=== PATIENT | female | born 1950 | race Caucasian/White ===

== ENCOUNTER 2021-03-14 05:43 | Outpatient (CLI) | payer OTHER ==
[~2021-03-14] VITALS: Ht 165.1 cm; Wt 84.0 kg
[2021-03-14] MEDS ORDERED: LISI20TA26 PO (13:05)
[2021-03-14] MEDS ORDERED: HYDR12.56 PO (13:05)
[2021-03-14] MEDS ORDERED: ASPI-999 PO (13:05)
[2021-03-14] MEDS ORDERED: ATOR40TA70 PO (13:05)
[2021-03-14] MEDS ORDERED: METF-845 PO (13:05)
[2021-03-14] MEDS ORDERED: MV-M1TAB38 PO (13:05)
[2021-03-14] MEDS ORDERED: OXYC5TAB PO (13:05)
[2021-03-14] MEDS ORDERED: ATEN100T PO (13:05)
[2021-03-14] MEDS ORDERED: OMEP20CA18 PO (13:05)
[2021-03-14] MEDS ORDERED: OMEG10005 PO (13:05)
== END 2021-03-14 16:18 | disposition home or self-care (01) ==
LOC: PREOP 05:43
PROVIDERS: ATTEND Surgery
DX: Z01.818 Encounter for other preprocedural examination (principal)

== ENCOUNTER 2021-03-24 12:53 | Day surgery (SDC) | payer MEDICARE, OTHER ==
[~2021-03-24] VITALS: Ht 165.1 cm; Wt 84.0 kg
[2021-03-24] VITALS (7 sets, daily range): BP systolic 127–143; BP diastolic 49–92
[~2021-03-24 12:53] MED LIST: ASPI-999 PO; ATEN100T PO; ATOR40TA70 PO; HYDR12.56 PO; LISI20TA26 PO; METF-845 PO; MV-M1TAB38 PO; OMEG10005 PO; OMEP20CA18 PO; OXYC5TAB PO
[2021-03-24] MEDS ORDERED: LACTATED RINGERS 1,000 ML IV STA (13:05)
[2021-03-24] MEDS ORDERED: PROPOFOL INJECTION 50 ML IV ONE (14:22)
[2021-03-24] MEDS ORDERED: proPOfol 200 MG/20 ML (DIPRIVAN) VIAL IV ONE (16:04)
--- NOTE | 2021-03-24 16:21 | Progress Note-Post Operative ---
Post-Operative Progess Note Surgeon (s)/Meat Butcher (s) Surgeon SHANDA RILEY DO Meat Butcher: na Pre-Operative Diagnosis screening colonoscopy Post-Operative Diagnosis diverticulosis, mucosal change sigmoid Procedure & Operative Findings Date of Procedure 03/24/21 Procedure Performed/Findings colonoscopy c cold biopsy sigmoid Anesthesia Type per [facility] Estimated Blood Loss Estimated blood loss (mL): none Specimens/Packing Specimens Removed sigmoid mucosa SHANDA RILEY DO Mar 24, 2021 16:21
--- NOTE | 2021-03-24 16:22 | Discharge Inst-Simple/Standard ---
Discharge Inst-Standard Patient Instructions/Follow Up Plan of Care/Instructions/FU: 2 weeks Shai Activity as Tolerated: Yes Discharge Diet: Regular Diet (high fiber) SHANDA RILEY DO Mar 24, 2021 16:22
--- NOTE | 2021-03-24 16:23 | Anesthesia-General Post-Op ---
MAC Patient Condition Mental Status/LOC: Same as Preop Cardiovascular: Satisfactory Nausea/Vomiting: Absent Respiratory: Satisfactory Pain: Controlled Complications: Absent Post Op Complications Complications None Follow Up Care/Instructions Patient Instructions None needed. Anesthesiology Discharge Order Discharge Order Patient is doing well, no complaints, stable vital signs, no apparent adverse anesthesia problems. RU THAKKAR DO Mar 24, 2021 16:23
--- NOTE | 2021-03-24 23:13 | OPERATIVE REPORT ---
DATE OF SERVICE: 03/24/2021 PREOPERATIVE DIAGNOSIS: Screening colonoscopy. POSTOPERATIVE DIAGNOSIS: Diverticulosis, mucosal change, sigmoid. PROCEDURE: Colonoscopy with cold biopsy of sigmoid mucosa. SURGEON: Shanda Gibbons DO ANESTHESIA: Per MDA. ESTIMATED BLOOD LOSS: None. COMPLICATIONS: None. INDICATIONS: The patient is a 70-year-old female needing screening colonoscopy. She understands risks and benefits of procedure and wished to proceed. Consent was signed in the chart. DESCRIPTION OF PROCEDURE: The patient was taken to the endoscopy suite, placed in left lateral recumbent position. Timeout was performed. Digital rectal exam was performed. No palpable polyps, masses or ulcerations. Scope was inserted in the rectum and advanced all the way to cecum with minimal difficulty. Prep was adequate with irrigation and suction. Scope was slowly retracted back. No polyps, masses or ulcerations within the cecum, ascending, transverse and descending colon. In the sigmoid colon, a moderate amount of diverticulosis is present. Some slight erythematous mucosal changes. Cold biopsy was obtained. Scope was then continuously retracted back into the rectum, which also had some erythematous changes. Biopsy of the rectum was obtained as well. Scope was retroflexed noting no other pathology. Scope was returned to its normal position, slowly withdrawn until completely removed. The patient tolerated procedure well without any complications, taken to recovery room in stable condition. RECOMMENDATIONS: The patient will need repeat colonoscopy on an as needed basis as her next colonoscopy would be 10 years. If she has any issues before that, she should be seen at that time. The patient to follow up on biopsies obtained in the office in about two weeks. CC: Dr. Lynn - requested, unable to deliver Job ID: [id number] DocumentID: [id number] Dictated Date: 03/24/2021 16:53:56 Advertising Operations Coordinator Date: 03/24/2021 22:33:09 Dictated By: SHANDA GIBBONS DO
== END 2021-03-24 17:00 | disposition home or self-care (01) ==
LOC: ENDO 12:53
PROVIDERS: ATTEND Surgery
DX: Z12.11 Encounter for screening for malignant neoplasm of colon (principal); K52.9 Noninfective gastroenteritis and colitis, unspecified; K57.30 Diverticulosis of large intestine without perforation or abscess without bleeding; I10 Essential (primary) hypertension; E78.5 Hyperlipidemia, unspecified; K21.9 Gastro-esophageal reflux disease without esophagitis; Z79.899 Other long term (current) drug therapy
CPT/HCPCS: 88305

== ENCOUNTER 2022-02-03 19:17 | Observation (INO) | payer MEDICARE ==
[~2022-02-03] VITALS: Ht 165.1 cm; Wt 89.1 kg
[2022-02-03 19:37] LABS: BASOPHILS % (AUTO) 1 % (0-10); EOSINOPHILS # (AUTO) 0.2 10^3/uL (0.0-0.3); EOSINOPHILS % (AUTO) 2 % (0-10); HEMATOCRIT 34 % (35-52); HEMOGLOBIN 12.1 g/dL (11.5-16.0); LYMPHOCYTES # (AUTO) 2.8 10^3/uL (1.0-4.0); LYMPHOCYTES % (AUTO) 32 % (12-44); MEAN CORPUSCULAR HEMOGLOBIN 35 pg (25-34); MEAN CORPUSCULAR HGB CONC 36 g/dL (32-36); MEAN CORPUSCULAR VOLUME 96 fL (80-99); MEAN PLATELET VOLUME 10.1 fL (9.0-12.2); MONOCYTES # (AUTO) 0.9 10^3/uL (0.0-1.0); MONOCYTES % (AUTO) 10 % (0-12); NEUTROPHILS # (AUTO) 4.7 10^3/uL (1.8-7.8); NEUTROPHILS % (AUTO) 54 % (42-75); PLATELET COUNT 274 10^3/uL (130-400); WHITE BLOOD COUNT 8.6 10^3/uL (4.3-11.0)
[2022-02-03 19:46] LABS: PROTHROMBIN TIME PATIENT 13.6 SEC (12.2-14.7)
--- NOTE | 2022-02-03 19:47 | Diagnostic Imaging Report ---
INDICATION: Shortness of breath. FINDINGS: There is no alveolar consolidation or evidence of an effusion. There is no pneumothorax. Heart size appears appropriate. Pulmonary vascularity appears normal. The patient is status post previous bilateral shoulder arthroplasty. IMPRESSION: No radiographic evidence of an acute cardiopulmonary process. Dictated by: Dictated on workstation # [id number]
[2022-02-03 19:55] LABS: POTASSIUM 3.3 MMOL/L (3.6-5.0)
[2022-02-03 19:56] LABS: ALBUMIN 4.1 GM/DL (3.2-4.5); BILIRUBIN,TOTAL 0.5 MG/DL (0.1-1.0); CALCIUM 9.3 MG/DL (8.5-10.1); CREATININE SERUM 1.05 MG/DL (0.60-1.30); MAGNESIUM 1.8 MG/DL (1.6-2.4)
--- NOTE | 2022-02-03 20:00 | ED Respiratory ---
General Chief Complaint: Respiratory Problems Stated Complaint: SOB,DIZZINESS Nursing Triage Note: Pt complaining of shortness of breath and dizziness. Pt states she has had several episodes where she has felt this way over the past few weeks, each lasting about 10 min. Pt states today she started feeling this way around 1600. Source: patient Exam Limitations: no limitations History of Present Illness Date Seen by Provider: Feb 03, 2022 Time Seen by Provider: 19:20 Initial Comments 71-year-old female patient with history of hypertension, hyperlipidemia, arthrit is presented POV with complaining of shortness of breath and dizziness for the last 3 hours patient complaining of sudden onset of shortness of breath and generalized weakness and dizziness with change of the position and also rest without palpitation, chest pain, nausea and vomiting, focal neurodeficit, headache, blurred vision, fever and chills, cough and congestion. Patient sta hector she has had episodes of dizziness and shortness of breath for the last 1 month that usually last about 10 minutes and resolve spontaneously but today it lasted for longer time. Patient did not seek medical attention for her problem. Allergies and Home Medications Allergies Coded Allergies: Penicillins (Unverified Allergy, Unknown, 03/14/21) Sulfa (Sulfonamide Antibiotics) (Unverified Allergy, Unknown, 03/14/21) clindamycin (Unverified Allergy, Unknown, 03/14/21) hydrocodone (Unverified Allergy, Unknown, 03/14/21) morphine (Unverified Allergy, Unknown, 03/14/21) tramadol (Unverified Allergy, Unknown, 03/14/21) Patient Home Medication List Home Medication List Reviewed: Yes Aspirin (Aspirin) 81 Mg Tab.chew, 81 MG PO DAILY, (Reported) Entered as Reported by: ALFREDO CALDWELL on 03/14/21 1305 Atenolol (Atenolol) 100 Mg Tablet, 100 MG PO DAILY, (Reported) Entered as Reported by: ALFREDO CALDWELL on 03/14/21 1305 Atorvastatin Calcium (Atorvastatin Calcium) 40 Mg Tablet, 40 MG PO DAILY, (Reported) Entered as Reported by: ALFREOD CALDWELL on 03/14/21 1305 Hydrochlorothiazide (Hydrochlorothiazide) 12.5 Mg Tablet, 12.5 MG PO DAILY, (Reported) Entered as Reported by: ALFREDO CALDWELL on 03/14/21 1305 Lisinopril (Lisinopril) 20 Mg Tablet, 20 MG PO DAILY, (Reported) Entered as Reported by: ALFREDO CALDWELL on 03/14/21 130 Metformin HCl (Metformin HCl ER) 500 Mg [id number], 500 MG PO DAILY, (Reported) Entered as Reported by: ALFREDO CALDWELL on 03/14/21 1305 Mv-Mn/FA/Vit K/Lycop/Lut/Zeaxa (Ocuvite Eye + Multi Tablet) 1 Each Tablet, 1 EACH PO DAILY, (Reported) Entered as Reported by: ALFREDO CALDWELL on 03/14/21 130 Houston-3 Fatty Acids (Houston-3) 1,000 Mg Capsule, 1,000 MG PO DAILY, (Reported) Entered as Reported by: ALFREDO CALDWELL on 03/14/21 130 Omeprazole (Omeprazole) 20 Mg Capsule.dr, 20 MG PO DAILY, (Reported) Entered as Reported by: ALFREDO CALDWELL on 03/14/21 130 Oxycodone HCl (Oxycodone HCl) 5 Mg Tablet, 5 MG PO PRN, (Reported) Entered as Reported by: ALFREDO CALDWELL on 03/14/21 130 Review of Systems Review of Systems Constitutional: see HPI EENTM: see HPI Respiratory: see HPI Cardiovascular: see HPI Gastrointestinal: see HPI Genitourinary: see HPI Musculoskeletal: see HPI Skin: see HPI Psychiatric/Neurological: See HPI Hematologic/Lymphatic: See HPI Immunological/Allergic: see HPI All Other Systems Reviewed Negative Unless Noted: Yes Past Zjzwbiw-Cadbcl-Dpbvfa Hx Patient Social History Tobacco Use?: No Use of E-Cig and/or Vaping dev: No Substance use?: No Alcohol Use?: Yes Pt feels they are or have been: No Immunizations Up To Date First/Initial COVID19 Vaccinat: JUNE 2020 Second COVID19 Vaccination David: JULY 2020 Seasonal Allergies Seasonal Allergies: No Past Medical History Surgeries: Yes Section, Orthopedic Respiratory: No Cardiac: No Neurological: No Genitourinary: No Gastrointestinal: No Musculoskeletal: No Endocrine: No HEENT: No Cancer: No Psychosocial: No Integumentary: No Blood Disorders: No Physical Exam Vital Signs - First Documented 02/03/22 02/03/22 19:19 19:25 Temp 36.4 Pulse 132 Resp 20 B/P (MAP) 177/91 (119) Pulse Ox 100 O2 Delivery Room Air O2 Flow Rate 2.00 FiO2 100 Capillary Refill : Less Than 3 Seconds Height: '" Weight: lbs. oz. kg; 30.81 BMI Method: General Appearance: WD/WN, moderate distress Eyes: Bilateral Eye Normal Inspection, Bilateral Eye PERRL HEENT: PERRL/EOMI, normal ENT inspection Neck: non-tender, full range of motion Respiratory: chest non-tender, lungs clear, normal breath sounds, no respiratory distress, no accessory muscle use Cardiovascular: no gallop, no murmur, tachycardia, irregularly irregular Gastrointestinal: normal bowel sounds, non tender, soft, no organomegaly Extremities: normal range of motion, non-tender, normal inspection Neurologic/Psychiatric: alert, normal mood/affect, oriented x 3 Skin: normal color, warm/dry Lymphatic: no adenopathy Progress/Results/Core Measures Suspected Sepsis SIRS Temperature: Pulse: 105 Respiratory Rate: 20 Laboratory Tests 02/03/22 19:24: White Blood Count 8.6 Blood Pressure 168 /97 Mean: 120 Laboratory Tests 02/03/22 19:24: Creatinine 1.05, INR Comment 1.0, Platelet Count 274, Total Bilirubin 0.5 Results/Orders Lab Results Laboratory Tests Test 02/03/22 19:24 Range/Units White Blood Count 8.6 4.3-11.0 10^3/uL Red Blood Count 3.51 L 3.80-5.11 10^6/uL Hemoglobin 12.1 11.5-16.0 g/dL Hematocrit 34 L 35-52 % Mean Corpuscular Volume 96 80-99 fL Mean Corpuscular Hemoglobin 35 H 25-34 pg Mean Corpuscular Hemoglobin Concent 36 32-36 g/dL Red Cell Distribution Width 12.7 10.0-14.5 % Platelet Count 274 130-400 10^3/uL Mean Platelet Volume 10.1 9.0-12.2 fL Immature Granulocyte % (Auto) 1 % Neutrophils (%) (Auto) 54 42-75 % Lymphocytes (%) (Auto) 32 12-44 % Monocytes (%) (Auto) 10 0-12 % Eosinophils (%) (Auto) 2 0-10 % Basophils (%) (Auto) 1 0-10 % Neutrophils # (Auto) 4.7 1.8-7.8 10^3/uL Lymphocytes # (Auto) 2.8 1.0-4.0 10^3/uL Monocytes # (Auto) 0.9 0.0-1.0 10^3/uL Eosinophils # (Auto) 0.2 0.0-0.3 10^3/uL Basophils # (Auto) 0.0 0.0-0.1 10^3/uL Immature Granulocyte # (Auto) 0.1 0.0-0.1 10^3/uL Prothrombin Time 13.6 12.2-14.7 SEC INR Comment 1.0 0.8-1.4 Activated Partial Thromboplast Time 27 24-35 SEC Sodium Level 125 *L 135-145 MMOL/L Potassium Level 3.3 L 3.6-5.0 MMOL/L Chloride Level 84 L 98-107 MMOL/L Carbon Dioxide Level 23 21-32 MMOL/L Anion Gap 18 H 5-14 MMOL/L Blood Urea Nitrogen 17 7-18 MG/DL Creatinine 1.05 0.60-1.30 MG/DL Estimat Glomerular Filtration Rate 57 BUN/Creatinine Ratio 16 Glucose Level 135 H 70-105 MG/DL Calcium Level 9.3 8.5-10.1 MG/DL Corrected Calcium 9.2 8.5-10.1 MG/DL Magnesium Level 1.8 1.6-2.4 MG/DL Total Bilirubin 0.5 0.1-1.0 MG/DL Aspartate Amino Transf (AST/SGOT) 24 5-34 U/L Alanine Aminotransferase (ALT/SGPT) 18 0-55 U/L Alkaline Phosphatase 106 40-136 U/L Troponin I < 0.30 <0.30 NG/ML Pro-B-Type Natriuretic Peptide 1446.0 H <125.0 PG/ML Total Protein 7.0 6.4-8.2 GM/DL Albumin 4.1 3.2-4.5 GM/DL My Orders Orders - MER MURRIETA MD Diltiazem Injection (Cardizem Injection) (02/03/22 19:30) Ekg Tracing (02/03/22 19:27) Ed Iv/Invasive Line Start (02/03/22 19:27) Cbc With Automated Diff (02/03/22 19:32) Magnesium (02/03/22 19:32) Chest 1 View Ap/Pa Only (02/03/22 19:32) Ekg Tracing (02/03/22:32) Comprehensive Metabolic Panel (02/03/22:32) Protime With Inr (02/03/22 19:32) Partial Thromboplastin Time (02/03/22 19:32) O2 (02/03/22:32) Monitor-Rhythm Ecg Trace Only (02/03/22 19:32) Ed Iv/Invasive Line Start (02/03/22 19:32) Troponin I Fs (02/03/22 19:32) Probnp Fs (02/03/22 19:32) Ns Iv 500 Ml (Sodium Chloride 0.9%) (02/03/22 20:15) Potassium Chloride (Tablet) (K Dur Table (02/03/22 21:00) Medications Given in ED Current Medications Medications Dose Ordered Sig/Wesley Route Start Time Stop Time Status Last Admin Dose Admin Diltiazem HCl 20 mg ONCE ONCE IVP 02/03/22 19:30 02/03/22 19:31 DC 02/03/22 19:32 20 MG Potassium Chloride 40 meq ONCE ONCE PO 02/03/22 21:00 02/03/22 21:01 DC 02/03/22 20:58 40 MEQ Sodium Chloride 500 ml @ 0 mls/hr Q0M ONCE IV 02/03/22 20:15 02/03/22 20:16 DC 02/03/22 20:11 999 MLS/HR Vital Signs/I&O 02/03/22 02/03/22 02/03/22 02/03/22 19:19 19:25 19:32 21:38 Temp 36.4 Pulse 132 105 58 Resp 20 18 B/P (MAP) 177/91 (119) 168/97 160/68 Pulse Ox 100 100 100 O2 Delivery Room Air Nasal Cannula Room Air O2 Flow Rate 2.00 FiO2 100 Capillary Refill : Less Than 3 Seconds Blood Pressure Mean: 120 Progress Note : Progress Note Evaluation of patient in ER showed 8-year-old female patient with history of hypertension and hyperlipidemia with complaining of episode of dizziness and shortness of breath for several weeks that getting worse today. Patient had atrial fibrillation with RVR at rate of 111 and treated with bolus of Cardizem with gradual decrease of heart rate to 80s and then 60s and 40s with improvement of her shortness of breath and dizziness. Patient had potassium of 3.3 and sodium of 125 and chloride of 80 and treated with bolus of normal saline 500 mL and oral potassium of 40 mEq. Troponin was normal but BNP was 1440. Chest x- ray did not show cardiomegaly or increase of vascular congestion. Dr. Thomas on-call laboratory supervisor was consulted at 2049 and recommended to admit patient for observation and give Eliquis 5 mg twice daily. He did not recommend to give any Lasix at this time. Dr. Desir on-call hospitalist was consulted at 2100 and agreed with admitting the patient. Patient and her updated several times with the test results and plan of care and need for transfer and all questions was addressed. Patient had heart rate of 57 at time of transfer. ECG Initial ECG Impression Date: Feb 03, 2022 Initial ECG Impression Time: 19:21 Initial ECG Rate: 111 Initial ECG Rhythm: A Fib/Flutter Initial ECG Intervals EKG interpreted by me. EKG at 1920 showed atrial fibrillation with RVR with PVCs, moderate voltage criteria for LVH, nonspecific T wave abnormality, no acute ST and T wave elevation. EKG : EKG Time: 20:07 Rate: 44 Rhythm: S.Prasanth Comment EKG interpreted by me. EKG at 2006 showed sinus bradycardia at rate of 44, normal CT interval of 182 and QT of 440, multiple artifact, no acute ST and T wave elevation. Diagnostic Imaging Diagonstic Imaging: Xray Plain Films/CT/US/NM/MRI: chest Comments 1 view chest x-ray interpreted by radiologist and reviewed by me and showed: NAME: ASHLEY AMARO V [facility] REC#: [id number] PT STATUS: REG ER : 1950 PHYSICIAN: MER MURRIETA MD ADMIT DATE: 02/03/22/ER FS Draft Date of Exam:02/03/22 CHEST 1 VIEW AP/PA ONLY INDICATION: Shortness of breath. FINDINGS: There is no alveolar consolidation or evidence of an effusion. There is no pneumothorax. Heart size appears appropriate. Pulmonary vascularity appears normal. The patient is status post previous bilateral shoulder arthroplasty. IMPRESSION: No radiographic evidence of an acute cardiopulmonary process. Dictated on workstation # [id number] Dict: 02/03/221939 Trans: 02/03/221945 [facility] [id number] Interpreted by: TARIK ALDRIDGE MD Electronically signed by: Departure Communication (Admissions) Time/Spoke to Admitting Phy: 21:01 Dr. Solis on-call hospitalist was consulted and accepted admission. Time/Spoke to Consulting Phy: 20:50 Dr. Schmitz laboratory supervisor was consulted at 2049 and recommended to admit patient to hospital to stepdown cardiac for observation, start Eliquis 5 mg p.o. twice daily, correct electrolyte imbalance, no Lasix was recommended. Impression Primary Impression: Atrial fibrillation with RVR Additional Impressions: Hyponatremia CHF (congestive heart failure) Qualified Codes: I50.9 - Heart failure, unspecified Hypokalemia Hypochloremia Disposition: 30 STILL A PATIENT Condition: Improved Admissions Decision to Admit Reason: Admit from ER (General) Decision to Admit/Date: Feb 03, 2022 Time/Decision to Admit Time: 21:05 Transfer Method of Transfer: EMS Departure-Patient Inst. Referrals: DARRYN COSTELLO MD (PCP/Family) Primary Care Physician MER MURRIETA MD Feb 03, 2022 20:00
[2022-02-03] MEDS ORDERED: NS IV 500 ML 500 ML IV ONE (20:15)
[2022-02-03] MEDS ORDERED: KCL 20 MEQ TAB (K-DUR) PO ONE (21:00)
[2022-02-03 22:53] VITALS: BP 179/80
[2022-02-03 23:00] VITALS: BP 170/74
[2022-02-03] MEDS ORDERED: BISACODYL 10 MG SUPP (DULCOLAX) PR PRN (23:00)
[2022-02-03] MEDS ORDERED: HYDROmorphone 2 MG/ML VIAL (DILAUDID) IV PRN (23:00)
[2022-02-03] MEDS ORDERED: diphenhydrAMINE 50 MG/ML INJ (BENADRYL) IVP PRN (23:00)
[2022-02-03] MEDS ORDERED: ONDANSETRON 4 MG/2 ML (SDV) Z0FRAN IV PRN (23:00)
[2022-02-03] MEDS ORDERED: ANTACID SUSP 30 ML UDC (MYLANTA) PO PRN (23:00)
[2022-02-03] MEDS ORDERED: diphenhydrAMINE 25 MG TAB (BENADRYL) PO PRN (23:00)
[2022-02-03] MEDS ORDERED: ONDANSETRON 4 MG (ZOFRAN) ORAL DISSOLVE TAB PO PRN (23:00)
[2022-02-03] MEDS ORDERED: MELATONIN 3 MG TABLET PO PRN (23:00)
[2022-02-03] MEDS ORDERED: ACETAMINOPHEN 325 MG TABLET PO PRN (23:00)
[2022-02-03] MEDS ORDERED: ALPRAZolam 0.5 MG (XANAX) TAB PO PRN (23:00)
[2022-02-03] MEDS ORDERED: polyethylene glycoL POWDER 17 GM (MIRALAX) PACK PO PRN (23:00)
[2022-02-03] MEDS ORDERED: cloNIDine 0.1 MG (CATAPRES) TAB PO PRN (23:00)
[2022-02-03 23:15] VITALS: BP 166/75
[2022-02-03] MEDS: NS IV 1000 ML 1,000 ML IV SCH (23:28)
[2022-02-03] MEDS: APIXABAN 5 MG (ELIQUIS) TABLET PO SCH (23:28)
[2022-02-03 23:30] VITALS: BP 166/75
[2022-02-04] VITALS (9 sets, daily range): BP systolic 136–185; BP diastolic 63–87
[2022-02-04 04:18] LABS: BILIRUBIN,URINE NEGATIVE (NEGATIVE); CLARITY,URINE CLEAR; COLOR,URINE YELLOW; GLUCOSE, URINE (UA) NEGATIVE (NEGATIVE); KETONES,URINE NEGATIVE (NEGATIVE); LEUKOCYTE ESTERASE ,URINE 1+ (NEGATIVE); NITRITE,URINE POSITIVE (NEGATIVE); PH,URINE 7.5 (5-9); PROTEIN,URINE NEGATIVE (NEGATIVE)
[2022-02-04 04:33] LABS: BACTERIA,URINE LARGE /HPF; RBC,URINE 0-2 /HPF; SQUAMOUS EPITHELIAL CELL,UR 25-50 /HPF
[2022-02-04 04:49] LABS: BASOPHILS % (AUTO) 0 % (0-10); EOSINOPHILS # (AUTO) 0.1 10^3/uL (0.0-0.3); EOSINOPHILS % (AUTO) 1 % (0-10); HEMATOCRIT 30 % (35-52); HEMOGLOBIN 10.6 g/dL (11.5-16.0); LYMPHOCYTES # (AUTO) 1.9 10^3/uL (1.0-4.0); LYMPHOCYTES % (AUTO) 27 % (12-44); MEAN CORPUSCULAR HEMOGLOBIN 34 pg (25-34); MEAN CORPUSCULAR HGB CONC 35 g/dL (32-36); MEAN CORPUSCULAR VOLUME 98 fL (80-99); MEAN PLATELET VOLUME 9.9 fL (9.0-12.2); MONOCYTES # (AUTO) 0.8 10^3/uL (0.0-1.0); MONOCYTES % (AUTO) 11 % (0-12); NEUTROPHILS # (AUTO) 4.4 10^3/uL (1.8-7.8); NEUTROPHILS % (AUTO) 61 % (42-75); PLATELET COUNT 233 10^3/uL (130-400); WHITE BLOOD COUNT 7.2 10^3/uL (4.3-11.0)
[2022-02-04 05:06] LABS: ALBUMIN 3.4 GM/DL (3.2-4.5); POTASSIUM 4.2 MMOL/L (3.6-5.0)
[2022-02-04 05:08] LABS: CALCIUM 8.6 MG/DL (8.5-10.1)
[2022-02-04 05:09] LABS: TOTAL PROTEIN 6.1 GM/DL (6.4-8.2)
[2022-02-04 05:11] LABS: BILIRUBIN,TOTAL 0.7 MG/DL (0.1-1.0)
[2022-02-04 05:12] LABS: CREATININE SERUM 0.86 MG/DL (0.60-1.30); PHOSPHORUS 3.5 MG/DL (2.3-4.7)
[2022-02-04 05:15] LABS: MAGNESIUM 1.8 MG/DL (1.6-2.4)
--- NOTE | 2022-02-04 05:37 | History & Physical-Hospitalist ---
History of Present Illness Date Seen 02/04/22 Time Seen by a Provider: 11:00 Attending Physician Camila Lynn MD PCP Admitting Physician: Brit Solis DO Attending Physician: Brit Solis DO Referring Physician Date of Admission Feb 03, 2022 at 22:44 Home Medications & Allergies Home Medications Reviewed patient Home Medication Reconciliation performed by pharmacy medication reconciliations urgent care technician and/or nursing. Patients Allergies have been reviewed. Allergies Allergies Coded Allergies Penicillins (Unverified Allergy, Unknown, 03/14/21) Sulfa (Sulfonamide Antibiotics) (Unverified Allergy, Unknown, 03/14/21) clindamycin (Unverified Allergy, Unknown, 03/14/21) hydrocodone (Unverified Allergy, Unknown, 03/14/21) morphine (Unverified Allergy, Unknown, 03/14/21) tramadol (Unverified Allergy, Unknown, 03/14/21) Past Cnmjhda-Astkvm-Klblcp Hx Patient Social History Tobacco Use?: No Smoking Status: Never a Smoker Smokeless Tobacco Frequency: Never a User Use of E-Cig and/or Vaping dev: No Use of E-Cig and/or Vaping Akira: Never a User Substance use?: No Alcohol Use?: Yes Alcohol type: Hard Liquor Alcohol Frequency: Daily Pt feels they are or have been: No Immunizations Up To Date Date of Influenza Vaccine: Mar 14, 2021 First/Initial COVID19 Vaccinat: JUNE 2020 Second COVID19 Vaccination David: JULY 2020 Tetanus Booster (TDap): Unknown Hepatitis A: No Hepatitis B: No Seasonal Allergies Seasonal Allergies: No Current Status status: No status: No Advance Directives: No Communicates: Verbally Primary Language: Emirati Preferred Spoken Language: Emirati Is interpretation needed?: No Implanted or Applied Medical D: Orthopedic hardware Past Medical History Surgeries: Section, Orthopedic Blood Disorders: No Physical Exam Physical Exam Vital Signs Vital Signs - First Documented 02/03/22 02/03/22 19:19 19:25 Temp 36.4 Pulse 132 Resp 20 B/P (MAP) 177/91 (119) Pulse Ox 100 O2 Delivery Room Air O2 Flow Rate 2.00 FiO2 100 Capillary Refill : Less Than 3 Seconds Height, Weight, BMI Height: '" Weight: lbs. oz. kg; 32.68 BMI Method: Results Results/Procedures Labs Laboratory Tests 02/03/22 19:24 02/04/22 04:38 Patient resulted labs reviewed. BRIT SOLIS DO Feb 04, 2022 05:37
[2022-02-04] MEDS ORDERED: FLU QUAD HIGH DOSE 240 MCG/0.7 ML 2022-23 (FLUZONE) IM ONE (07:15)
[2022-02-04] MEDS: APIXABAN 5 MG (ELIQUIS) TABLET PO SCH (08:03)
[2022-02-04] MEDS ORDERED: DOCUSATE SODIUM 100 MG (COLACE) CAP PO SCH (09:00)
[2022-02-04] MEDS ORDERED: TRAM50TA3 PO (09:57)
[2022-02-04] MEDS ORDERED: CLIN-144 PO (09:59)
--- NOTE | 2022-02-04 10:45 | Short Stay Summary-Hospitalist ---
History of Present Illness HPI/Chief Complaint Chief complaint: New onset A. fib with RVR HPI: This is a 71-year-old female past medical history of recurrent UTIs and hypertension who presented to the ER with new onset A. fib with RVR so she was given Cardizem bolus which converted the patient was placed on oral anticoagulation for stroke prophylaxis and cardiology was consulted. Cardiology work-up ensued and patient is currently doing well remains in normal sinus rhythm and will go home on Xarelto discontinue the aspirin and holding hydrochlorothiazide and increasing lisinopril to 40 mg daily and decreasing atenolol to 25 mg from 100. Source: patient Exam Limitations: clinical condition Date Seen 02/04/22 Time Seen by a Provider: 11:00 Attending Physician Camila Lynn MD PCP Admitting Physician: Brit Solis DO Attending Physician: Brit Solis DO Referring Physician Date of Admission Feb 03, 2022 at 22:44 Home Medications & Allergies Home Medications Reviewed patient Home Medication Reconciliation performed by pharmacy medication reconciliations it help desk technician and/or nursing. Patients Allergies have been reviewed. Allergies Allergies Coded Allergies Penicillins (Unverified Allergy, Unknown, 03/14/21) Sulfa (Sulfonamide Antibiotics) (Unverified Allergy, Unknown, 03/14/21) clindamycin (Unverified Allergy, Unknown, 03/14/21) hydrocodone (Unverified Allergy, Unknown, 03/14/21) morphine (Unverified Allergy, Unknown, 03/14/21) tramadol (Unverified Allergy, Unknown, 03/14/21) Past [place]-Iprbli-Opmodj Hx Patient Social History Marrital Status: Employed/Student: retired Tobacco Use?: No Smoking Status: Never a Smoker Smokeless Tobacco Frequency: Never a User Use of E-Cig and/or Vaping dev: No Use of E-Cig and/or Vaping Akira: Never a User Substance use?: No Alcohol Use?: Yes Alcohol type: Hard Liquor Alcohol Frequency: Daily Pt feels they are or have been: No Immunizations Up To Date Date of Influenza Vaccine: Mar 14, 2021 First/Initial COVID19 Vaccinat: JUNE 2020 Second COVID19 Vaccination David: JULY 2020 Tetanus Booster (TDap): Unknown Hepatitis A: No Hepatitis B: No Seasonal Allergies Seasonal Allergies: No Current Status status: No status: No Advance Directives: No Communicates: Verbally Primary Language: Venezuelan Preferred Spoken Language: Venezuelan Is interpretation needed?: No Implanted or Applied Medical D: Orthopedic hardware Past Medical History Surgeries: Section, Orthopedic High Cholesterol, Hypertension Blood Disorders: No Review of Systems Constitutional: see HPI Cardiovascular: palpitations Genitourinary: dysuria Physical Exam Physical Exam Vital Signs Vital Signs - First Documented 02/03/22 02/03/22 19:19 19:25 Temp 36.4 Pulse 132 Resp 20 B/P (MAP) 177/91 (119) Pulse Ox 100 O2 Delivery Room Air O2 Flow Rate 2.00 FiO2 100 Capillary Refill : Less Than 3 Seconds Height, Weight, BMI Height: '" Weight: lbs. oz. kg; 32.68 BMI Method: General Appearance: No Apparent Distress, WD/WN Eyes: Bilateral Eye Normal Inspection, Bilateral Eye PERRL HEENT: PERRL/EOMI, Normal ENT Inspection, Pharynx Normal Neck: Full Range of Motion, Normal Inspection, Non Tender, Supple, Carotid Bruit Respiratory: Chest Non Tender, Lungs Clear, Normal Breath Sounds, No Accessory Muscle Use, No Respiratory Distress Cardiovascular: Regular Rate, Rhythm, No Edema, No Gallop, No JVD, No Murmur, Normal Peripheral Pulses Gastrointestinal: Normal Bowel Sounds, No Organomegaly, No Pulsatile Mass, Non Tender, Soft Back: Normal Inspection, No CVA Tenderness, No Vertebral Tenderness Extremity: Normal Capillary Refill, Normal Inspection, Normal Range of Motion, Non Tender, No Calf Tenderness, No Pedal Edema Neurologic/Psychiatric: Alert, Oriented x3, No Motor/Sensory Deficits, Normal Mood/Affect Skin: Normal Color, Warm/Dry Lymphatic: No Adenopathy Results Results/Procedures Labs Laboratory Tests 02/03/22 19:24 02/04/22 04:38 Patient resulted labs reviewed. Short Stay Diagnosis Discharge Diagnosis-Short Stay Admission Diagnosis New onset A. fib with RVR Final Discharge Diagnosis New onset A. fib with RVR Acute on chronic UTI Conclusion Plan Discharge home today Diagnosis/Problems Diagnosis/Problems (1) Atrial fibrillation with RVR Status: Acute BRIT SOLIS DO Feb 04, 2022 10:45
[2022-02-04 13:13] LABS: BILIRUBIN,URINE NEGATIVE (NEGATIVE); CLARITY,URINE CLOUDY; COLOR,URINE YELLOW; GLUCOSE, URINE (UA) NEGATIVE (NEGATIVE); KETONES,URINE NEGATIVE (NEGATIVE); LEUKOCYTE ESTERASE ,URINE 2+ (NEGATIVE); NITRITE,URINE NEGATIVE (NEGATIVE); PROTEIN,URINE NEGATIVE (NEGATIVE)
[2022-02-04] MEDS: NS IV 1000 ML 1,000 ML IV SCH (13:18)
[2022-02-04 13:20] LABS: BACTERIA,URINE LARGE /HPF; RBC,URINE RARE /HPF; SQUAMOUS EPITHELIAL CELL,UR RARE /HPF; WBC,URINE 50-100 /HPF
[2022-02-04] MEDS ORDERED: LISI40TA9 PO (14:15)
[2022-02-04] MEDS ORDERED: CEFD300C3 PO (14:15)
[2022-02-04] MEDS ORDERED: RIVA20TA PO (14:15)
[2022-02-04] MEDS ORDERED: ATEN25TA PO (14:15)
--- NOTE | 2022-02-04 14:15 | Consultation-Cardiology ---
HPI-Cardiology Cardiology Consultation: Date of Consultation 02/04/22 Time Seen by a Provider: 11:30 Date of Admission Attending Physician Camila Lynn MD Admitting Physician Admitting Physician: Brit Solis DO Attending Physician: Brit Solis DO Consulting Physician STEHPANY SHAH MD, MA, FACP, FACC, [facility] [place] CCDS Physician requesting consult: Dr Solis HPI: Chief Complaint: Reason for Card consult: PAF 71 yo woman who presented to [facility] ER yesterday with gen malaise and gen body discomfort and dizziness. No brittney syncope. At times had had near-syncope. Was seen to be in A Fib at at time or presentation, vent rate reported to be approx 110 bpm. The ER physician treated with a bolus of iv Cardizem. Shortly thereafter, she converted to sinus mac. Oral anticoag was initiated and we were called. She was transferred to Dr Solis's care to this hosp. The patient has remained free of symptoms in the hosp. She does not report swelling or shortness of breath at rest. She denies n/v/d. She denies focal weakness. She does not report fever or chills Review of Systems-Cardiology Review of Systems Constitutional: As described under HPI Eyes: As described under HPI Ears/Nose/Throat: No ear discharge, No nasal drainage, No recent hearing loss, No ulcerations Respiratory: As described under HPI Cardiovascular: As described under HPI Gastrointestinal: As described under HPI Genitourinary: No dysuria, No hematuria, No urine frequency changes Musculoskeletal: back pain (chronic), joint pain (chronic) Skin: No rash, No ulcerations Psychiatric/Neurological: No seizure, No focal weakness, No syncope Hematologic: No bleeding abnormalities All Other Systems Reviewed Negative Unless Noted: Yes NMI-Onbwpr-Iitovu Hx Patient Social History Smoking Status: Never a Smoker 2nd Hand Smoke Exposure: No Have you traveled recently?: No Alcohol Use?: Yes Pt feels they are or have been: No Immunizations Up To Date Date of Influenza Vaccine: Mar 14, 2021 Past Medical History PMH As described under Assessment. Family Medical History Family Medical History: She reports a fam h/o early CAD Allergies and Home Medications Allergies Coded Allergies: Penicillins (Unverified Allergy, Unknown, 03/14/21) Sulfa (Sulfonamide Antibiotics) (Unverified Allergy, Unknown, 03/14/21) clindamycin (Unverified Allergy, Unknown, 03/14/21) hydrocodone (Unverified Allergy, Unknown, 03/14/21) morphine (Unverified Allergy, Unknown, 03/14/21) tramadol (Unverified Allergy, Unknown, 03/14/21) Patient Home Medication List Home Medication List Reviewed: Yes Aspirin (Aspirin) 81 Mg Tab.chew, 81 MG PO DAILY, (Reported) Entered as Reported by: ALFREDO CALDWELL on 03/14/211304 Last Action: Last Taken Edited Atenolol (Atenolol) 100 Mg Tablet, 100 MG PO DAILY, (Reported) Entered as Reported by: ALFREDO CALDWELL on 03/14/211304 Last Action: Last Taken Edited Atorvastatin Calcium (Atorvastatin Calcium) 40 Mg Tablet, 40 MG PO DAILY, (Reported) Entered as Reported by: ALFREDO CALDWELL on 03/14/211304 Last Action: Last Taken Edited Clindamycin HCl (Clindamycin HCl) 300 Mg Capsule, 300 MG PO, (Reported) Entered as Reported by: BARB CAMP on 02/04/22 0959 Last Action: New Order Hydrochlorothiazide (Hydrochlorothiazide) 12.5 Mg Tablet, 12.5 MG PO DAILY, (Reported) Entered as Reported by: ALFREDO CALDWELL on 03/14/211304 Last Action: Last Taken Edited Lisinopril (Lisinopril) 20 Mg Tablet, 20 MG PO DAILY, (Reported) Entered as Reported by: ALFREDO CALDWELL on 03/14/211304 Last Action: Last Taken Edited Metformin HCl (Metformin HCl ER) 500 Mg [id number], 500 MG PO DAILY, (Reported) Entered as Reported by: ALFREDO CALDWELL on 03/14/211304 Last Action: Last Taken Edited Mv-Mn/FA/Vit K/Lycop/Lut/Zeaxa (Ocuvite Eye + Multi Tablet) 1 Each Tablet, 1 EACH PO DAILY, (Reported) Entered as Reported by: ALFREDO CALDWELL on 03/14/211304 Last Action: Last Taken Edited T[place]umseh-3 Fatty Acids (T[place]umseh-3) 1,000 Mg Capsule, 500 MG PO DAILY, (Reported) Entered as Reported by: ALFREDO CALDWELL on 03/14/211304 Last Action: Edited Omeprazole (Omeprazole) 20 Mg Capsule., 40 MG PO DAILY, (Reported) Entered as Reported by: ALFREDO CALDWELL on 03/14/21 130 Last Action: Edited Oxycodone HCl (Oxycodone HCl) 5 Mg Tablet, 5 MG PO PRN, (Reported) Entered as Reported by: ALFREDO CALDWELL on 03/14/21 1305 Last Action: Last Taken Edited Tramadol HCl (Tramadol HCl) 50 Mg Tablet, 50-100 MG PO Q6H PRN for PAIN-MODERATE (5-7), (Reported) Entered as Reported by: BARB CAMP on 02/04/22 0957 Last Action: New Order Physical Exam-Cardiology Physical Exam Vital Signs/I&O 02/04/22 02/04/22 02/04/22 02/04/22 03:00 04:00 06:00 07:00 Temp 36.3 Pulse 58 58 66 55 Resp 19 19 22 B/P (MAP) 144/72 (96) 181/81 (114) Pulse Ox 97 99 99 O2 Delivery Room Air Room Air Room Air 02/04/22 02/04/22 02/04/22 02/04/22 07:50 09:00 11:39 12:00 Temp 36.6 36.9 Pulse 54 57 Resp 15 15 B/P (MAP) 163/63 (96) 145/66 (92) Pulse Ox 98 99 96 O2 Delivery Room Air Room Air Room Air 02/04/22 13:00 Pulse 61 02/04/22 00:00 Intake Total 500 ml Balance 500 ml Capillary Refill : Less Than 3 Seconds Constitutional: AAO x 3, well-developed, well-nourished HEENT: EOMI, hearing is well preserved Neck: carotid pulses are 2 + bilaterally, with good upstrokes Respiratory: No accessory muscle use; other (good, bilat air entry) Cardiovascular: regular rate-rhythm, S1 and S2, systolic murmur (soft LEXIE at card base) Gastrointestinal: No tender; soft; No guarding, No rebound; audible bowel sounds Extremities: No clubbing, No cyanosis Neurologic/Psychiatric: oriented x 3, other (moves all limbs equally) Skin: warm/dry; No rash on exposed areas, No ulcerations on exposed areas Data Review Labs Laboratory Tests 02/03/22 19:24: White Blood Count 8.6, Red Blood Count 3.51L, Hemoglobin 12.1, Hematocrit 34L, Mean Corpuscular Volume 96, Mean Corpuscular Hemoglobin 35H, Mean Corpuscular Hemoglobin Concent 36, Red Cell Distribution Width 12.7, Platelet Count 274, Mean Platelet Volume 10.1, Immature Granulocyte % (Auto) 1, Neutrophils (%) (Auto) 54, Lymphocytes (%) (Auto) 32, Monocytes (%) (Auto) 10, Eosinophils (%) (Auto) 2, Basophils (%) (Auto) 1, Neutrophils # (Auto) 4.7, Lymphocytes # (Auto) 2.8, Monocytes # (Auto) 0.9, Eosinophils # (Auto) 0.2, Basophils # (Auto) 0.0, Immature Granulocyte # (Auto) 0.1, Prothrombin Time 13.6, INR Comment 1.0, Activated Partial Thromboplast Time 27, Sodium Level 125*L, Potassium Level 3.3L , Chloride Level 84L, Carbon Dioxide Level 23, Anion Gap 18H, Blood Urea Nitrogen 17, Creatinine 1.05, Estimat Glomerular Filtration Rate 57, BUN/Creatinine Ratio 16, Glucose Level 135H, Calcium Level 9.3, Corrected Calcium 9.2, Magnesium Level 1.8, Total Bilirubin 0.5, Aspartate Amino Transf (AST/SGOT) 24, Alanine Aminotransferase (ALT/SGPT) 18, Alkaline Phosphatase 106, Troponin I < 0.30, Pro-B-Type Natriuretic Peptide 1446.0H, Total Protein 7.0, Albumin 4.1 02/04/22 04:10: Urine Color YELLOW, Urine Clarity CLEAR, Urine pH 7.5, Urine Specific [place] 1.010L, Urine Protein NEGATIVE, Urine Glucose (UA) NEGATIVE, Urine Ketones NEGATIVE, Urine Nitrite POSITIVEH, Urine Bilirubin NEGATIVE, Urine Urobilinogen 0.2, Urine Leukocyte Esterase 1+H, Urine RBC (Auto) NEGATIVE, Urine RBC 0-2, Urine WBC 10-25H, Urine Squamous Epithelial Cells 25-50H, Urine Crystals NONE, Urine Bacteria LARGEH, Urine Casts NONE, Urine Mucus NEGATIVE, Urine Culture Indicated YES 02/04/22 04:38: White Blood Count 7.2, Red Blood Count 3.08L, Hemoglobin 10.6L, Hematocrit 30L, Mean Corpuscular Volume 98, Mean Corpuscular Hemoglobin 34, Mean Corpuscular He moglobin Concent 35, Red Cell Distribution Width 12.7, Platelet Count 233, Mean Platelet Volume 9.9, Immature Granulocyte % (Auto) 0, Neutrophils (%) (Auto) 61, Lymphocytes (%) (Auto) 27, Monocytes (%) (Auto) 11, Eosinophils (%) (Auto) 1, Basophils (%) (Auto) 0, Neutrophils # (Auto) 4.4, Lymphocytes # (Auto) 1.9, Monocytes # (Auto) 0.8, Eosinophils # (Auto) 0.1, Basophils # (Auto) 0.0, Immature Granulocyte # (Auto) 0.0, Sodium Level 127L, Potassium Level 4.2, Chlo ride Level 92L, Carbon Dioxide Level 25, Anion Gap 10, Blood Urea Nitrogen 15, Creatinine 0.86, Estimat Glomerular Filtration Rate 73, BUN/Creatinine Ratio 17, Glucose Level 102, Calcium Level 8.6, Corrected Calcium 9.1, Magnesium Level 1.8, Total Bilirubin 0.7, Aspartate Amino Transf (AST/SGOT) 21, Alanine Aminotransferase (ALT/SGPT) 17, Alkaline Phosphatase 78, Total Protein 6.1L, Albumin 3.4, Phosphorus Level 3.5, Thyroid Stimulating Hormone (TSH) 2.39 02/04/22 11:30: Urine Color YELLOW, Urine Clarity CLOUDY, Urine pH 7.0, Urine Specific [place] 1.010L, Urine Protein NEGATIVE, Urine Glucose (UA) NEGATIVE, Urine Ketones NEGATIVE, Urine Nitrite NEGATIVE, Urine Bilirubin NEGATIVE, Urine Urobilinogen 0.2, Urine Leukocyte Esterase 2+H, Urine RBC (Auto) NEGATIVE, Urine RBC RARE, Urine WBC 50-100H, Urine Squamous Epithelial Cells RARE, Urine Crystals NONE, Urine Bacteria LARGEH, Urine Casts NONE, Urine Mucus NEGATIVE, Urine Culture Indicated YES Laboratory Tests 02/03/22 19:24 02/04/22 04:38 A/P-Cardiology Assessment/Admission Diagnosis PAF - first diagnosed on 02-03-22 - TSH normal on 02-04-22 - Echo on 02-04-22: mild conc LVH, LVEF 55-60%, mild biatrial enlargement, mild MAC, mild MR, PASP 40-45 mmHg Hypertension Elec abnormalities - likely due to chronic use of HCTZ for hypertension Impaired fasting glucose Hyperlipidemia - treated with statins and monitored by her pcp UTI - being managed by Dr Solis Chronic low back pain Discussion and Recomendations * OAC. Currently on apixaban (started 02/03/22). She requests a once-a-day r egimen. Accordingly, change to rivaroxaban 20 daily * Sinus mac since return to [facility]. Heart rate not very fast during a fib. H/o near syncope. Accordingly, reduce atenolol from 100 daily to 25 daily * D/c HCTZ due to marked hyponatremia and hypokalemia that are likely due to chronic HCTZ. Replenish lytes * Increase lisinopril to provide more antihypertensive effect (because HCTZ stopped and atenolol reduced) * Dr Solis treating UTI * Pathophysiology, possible etiologies, and treatment plan for PAF discussed. Questions answered. Outpt f/u advised STEPHANY SHAH MD FACP FAC CCDS Feb 04, 2022 14:15
[2022-02-04] MEDS ORDERED: CEFDINIR 300 MG (OMNICEF) CAP PO NR (14:30)
== END 2022-02-04 16:15 | disposition home or self-care (01) ==
LOC: EDUNIT# 19:17 → ER FS 19:18 → ICU 22:44
PROVIDERS: ADMIT Internal Medicine; ATTEND Internal Medicine
DX: I48.0 Paroxysmal atrial fibrillation (principal); Z28.311 Partially vaccinated for COVID-19; N39.0 Urinary tract infection, site not specified; Z79.899 Other long term (current) drug therapy; E87.1 Hypo-osmolality and hyponatremia; I50.9 Heart failure, unspecified; E87.6 Hypokalemia; E87.8 Other disorders of electrolyte and fluid balance, not elsewhere classified; R73.01 Impaired fasting glucose; G89.29 Other chronic pain
CPT/HCPCS: 36415; 71045; 80053 ×2; 81000; 83735 ×2; 83880; 84100; 84443; 84484; 85025 ×2; 85610; 85730; 87077; 87088; 87186; 93005 ×2; 93041; 99284; C8929; G0008; G0378; 90471; 90662; 93306

== ENCOUNTER → 2022-03-06 | Outpatient (CLI) | payer MEDICARE ==
[~2022-03-06] VITALS: Ht 162 cm; Wt 84.0 kg
[~2022-03-06] MED LIST changes: +ATEN25TA PO; +CEFD300C3 PO; +CLIN-144 PO; +LISI40TA9 PO; +REGADENOSON 0.4 MG/5 ML SYR (LEXISCAN) IV ONE; +RIVA20TA PO; +TRAM50TA3 PO
[2022-03-06] MEDS: CATHETER FLUSH 10 ML SYR IVP PRN ×2 (08:23→09:42)
[2022-03-06 09:40] VITALS: BP 171/93
== END ==
LOC: CARD 08:03
PROVIDERS: ATTEND Internal Medicine Cardiovascular Disease
DX: I48.0 Paroxysmal atrial fibrillation (principal)
CPT/HCPCS: 78452; 93017; A9502

== ENCOUNTER → 2022-04-20 | Outpatient (CLI) | payer MEDICARE ==
[~2022-04-20] MED LIST changes: +GADOTERATE 0.5 MMOL/ML (CLARISCAN) 20 ML VIAL IV ONE; -REGADENOSON 0.4 MG/5 ML SYR (LEXISCAN) IV ONE
--- NOTE | 2022-04-20 14:04 | Diagnostic Imaging Report ---
PROCEDURE: MRI lumbar spine without contrast. TECHNIQUE: Multiplanar, multisequence MRI of the lumbar spine was performed without contrast. INDICATION: Back pain. Symptoms are worsening. COMPARISON: None. FINDINGS: 5 lumbar type vertebral bodies are visualized with the last well-formed disc space designated L5-S1. Subacute appearing fracture seen involving the T12 vertebral body. There is a fracture line extending horizontally through the midportion of the T12 vertebral body. A Schmorl's node is seen in the superior endplate of L1. There is straightening of the lumbar spine with right convexity curvature centered at the L4-L5 level. There is grade 1 retrolisthesis of L5 on S1. Modic type II endplate degenerative changes are present at the L2-L3 level. There is partial osseous fusion of the L3 and L4 levels. Laminectomy is seen from L2 to L5. The conus terminates at the L1 level. No masses are seen associated with the conus or nerve roots of the cauda equina. No epidural collections are identified. Multilevel degenerative changes are seen in the lumbar spine with disc bulges, facet hypertrophy, and buckling of the ligamentum flavum. T12-L1: Broad-based disc bulge, facet hypertrophy, and buckling of the ligamentum flavum results in moderate to severe spinal canal stenosis and mild to moderate bilateral foraminal narrowing. L1-L2: Broad-based disc bulge, facet hypertrophy, and buckling of the ligamentum flavum results in moderate spinal canal stenosis and mild bilateral foraminal narrowing. L2-L3: Broad-based disc bulge and facet hypertrophy results in mild spinal canal narrowing and mild to moderate right and moderate left foraminal stenosis. L3-L4: Disc osteophyte complex and facet hypertrophy results in no significant spinal canal narrowing and mild right and moderate left foraminal stenosis. L4-L5: Right paracentral disc bulge, facet hypertrophy, and buckling of the ligamentum flavum results in mild spinal canal narrowing and moderate to severe bilateral foraminal stenosis. L5-S1: Broad-based disc bulge, facet hypertrophy, and buckling of the ligamentum flavum results in mild spinal canal narrowing and severe bilateral foraminal stenosis. Paravertebral soft tissues are unremarkable. IMPRESSION: 1. Subacute appearing fracture involving the T12 vertebral body. Recommend correlation with point tenderness and if indicated surgical consultation to further evaluate. 2. Advanced degenerative changes throughout the lumbar spine. The greatest spinal canal stenosis is present at the T12-L1 and L1-L2 levels with the most advanced foraminal stenosis at L4-L5 and L5-S1. 3. Modic type II endplate degenerative changes at L2-L3. 4. Grade 1 retrolisthesis of L5 on S1. Dictated by: Dictated on workstation # [id number]
== END ==
LOC: RAD 13:15
PROVIDERS: ATTEND Family Medicine
DX: M47.816 Spondylosis without myelopathy or radiculopathy, lumbar region (principal); M48.05 Spinal stenosis, thoracolumbar region; M48.07 Spinal stenosis, lumbosacral region; M43.17 Spondylolisthesis, lumbosacral region
CPT/HCPCS: 72148

== ENCOUNTER 2022-05-11 10:34 | Outpatient (CLI) | payer MEDICARE ==
[~2022-05-11 10:34] MED LIST changes: -GADOTERATE 0.5 MMOL/ML (CLARISCAN) 20 ML VIAL IV ONE
== END 2022-05-11 11:00 ==
LOC: SLEEP 10:34
PROVIDERS: ATTEND Otolaryngology Otolaryngology/Facial Plastic Surgery
DX: R06.83 Snoring (principal)
CPT/HCPCS: G0399